=== PATIENT | female | born 1980 | race African-American/Black ===

== ENCOUNTER 2016-09-24 09:37 | Emergency (ER) | payer OTHER ==
[~2016-09-24] VITALS: Ht 162.6 cm; Wt 68.9 kg
[~2016-09-24 09:37] MED LIST: BIOTIN1000 MCG PO; FLEXERIL10 MG PO; MOTRIN800 MG PO
[2016-09-24] MEDS ORDERED: METFORMIN HCL500 M4 PO (09:48)
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
--- NOTE | 2016-09-24 11:55 | CT SCAN REPORT ---
EXAMINATION: CT HEAD WITHOUT CONTRAST CLINICAL INFORMATION: Headache status-post fall. COMPARISON: None. TECHNIQUE: Contiguous axial imaging was performed from the skull base to vertex without intravenous administration of contrast. Additional coronal reformatted images are submitted. DLP: 600.71 mGy-cm. FINDINGS: There is no evidence of acute intracranial hemorrhage or territorial infarction. No abnormal mass effect or midline shift is seen. Tellez to white matter differentiation is well preserved. No extra-axial fluid collections are identified. The ventricles are normal in size. There is no abnormal attenuation within the brain parenchyma. The osseous structures and soft tissues are normal. The mastoid air cells and visualized portions of the paranasal sinuses are well aerated. IMPRESSION: No acute intracranial pathology.
--- NOTE | 2016-09-24 12:35 | RADIOLOGY REPORT ---
EXAMINATION: XR HUMERUS, RIGHT CLINICAL INFORMATION: Status post fall. COMPARISON: None TECHNIQUE: AP and lateral views of the right humerus. FINDINGS: The right humerus is intact. Although not optimally evaluated, right shoulder joint appears maintained. The regional soft tissues are unremarkable. IMPRESSION: The right humerus is intact without evidence of fracture or dislocation.
[2016-09-24 13:01] VITALS: BP 138/72
[2016-09-24] MEDS ORDERED: NAPROSYN500 M1 PO (13:33)
[2016-09-24] MEDS ORDERED: ORPHENADRINE C100 MG PO (13:33)
== END 2016-09-24 13:37 ==
LOC: ERH 09:37
DX: S09.90XA Unspecified injury of head, initial encounter (principal); S43.401A Unspecified sprain of right shoulder joint, initial encounter; W00.0XXA Fall on same level due to ice and snow, initial encounter; Y92.481 Parking lot as the place of occurrence of the external cause
CPT/HCPCS: 73060-RT; 96372; J1885

== ENCOUNTER 2016-12-27 00:01 | Emergency (ER) | payer OTHER ==
[~2016-12-27] VITALS: Ht 167.6 cm; Wt 68.9 kg
[~2016-12-27 00:01] MED LIST changes: +METFORMIN HCL500 M4 PO; +NAPROSYN500 M1 PO; +ORPHENADRINE C100 MG PO
[2016-12-27 00:53] VITALS: BP 124/69
[2016-12-27] MEDS ORDERED: PEPCID20 M1 PO (01:47)
[2016-12-27] MEDS ORDERED: MEDROL4 M2 PO (01:47)
--- NOTE | 2016-12-27 01:47 | ED SKIN/ALLERGY COMPLAINT ---
History of Present Illness General Chief Complaint: General Adult Stated Complaint: "PER PT BODY ACH,ITCHY,HIVES" Source: patient Exam Limitations: no limitations Vital Signs & Intake/Output Vital Signs & Intake/Output Vital Signs Date Time Temp Pulse Resp B/P B/P Pulse O2 O2 Flow FiO2 Mean Ox Delivery Rate 12/27 0150 98 Room Air 12/27 0053 98.8 102 16 124/69 98 Room Air Allergies Coded Allergies: NO KNOWN ALLERGIES (01/03/13) Triage Note: 36YO FEMALE TO TRIAGE W/CO "HIVES, SWOLLEN BODY " STATES RECENT UTI AND FINISHED NITROFURANTOIN ON WED. Triage Nurses Notes Reviewed? yes Onset: Abrupt Duration: day(s): (2) Timing: multiple episodes today Severity: mild, moderate Location: generalized No Modifying Factors: none Associated Symptoms: rash, ITCHING : No Patient currently breastfeeds: No HPI: 36-year-old female who presents to the ER for chief complaint of itching and hives all over body for the past 2 days. Denies any fever or chills. She finished a course of Macrobid last Wednesday but she had no reactions during the course of antibiotic. She denies using any different products. She does suffer from severe allergies but usually has itching and watery eyes but never has had hives before recent travel. Denies any difficulty swallowing or speaking. Past History Travel History Traveled to [place] past 21 day No Medical History Any Pertinent Medical History? see below for history Neurological: NONE EENT: NONE Cardiovascular: NONE Respiratory: NONE Gastrointestinal: NONE Hepatic: NONE Renal: NONE Musculoskeletal: NONE Psychiatric: NONE Endocrine: PREDIABETES Surgical History Surgical History: N Psychosocial History What is your primary language Nepali Tobacco Use: Never used ETOH Use: denies use Family History Hx Contributory? No Review of Systems Review of Systems Constitutional: Denies: chills, fever, malaise, weakness. EENTM: Reports: no symptoms. Respiratory: Denies: cough, short of breath. Cardiovascular: Denies: chest pain, palpitations, peripheral edema. GI: Denies: nausea, vomiting. Genitourinary: Reports: no symptoms. Musculoskeletal: Reports: no symptoms. Skin: Reports: see HPI (itching), rash. Neurological/Psychological: Denies: confusion. Hematologic/Endocrine: Denies: bruising, bleeding, polyuria, polydipsia. Immunologic/Allergic: Denies: splenectomy. All Other Systems: Reviewed and Negative Physical Exam Physical Exam General Appearance: well developed/nourished, alert, awake, mild distress Head: atraumatic, hives under eyes Eyes: Bilateral: PERRL, EOMI. Ears, Nose, Throat: normal pharynx, normal ENT inspection, hearing grossly normal Neck: supple, full range of motion, hives on neck Respiratory: normal breath sounds, chest non-tender, no respiratory distress, NO WHEEZING, NO STRIDOR Cardiovascular: regular rate/rhythm Peripheral Pulses: 2+ radial (R), 2+ radial (L) Gastrointestinal: soft, non-tender Back: normal inspection Extremities: normal inspection, normal range of motion, no edema Neurologic/Psych: awake, alert, oriented x 3, normal mood/affect Skin: intact, normal color, warm/dry, rash Skin Problem Location: face, neck Skin Problem Character: urticarial Lymphatic: no anterior cervical dieter Progress Differential Diagnosis: allergic reaction, anaphylaxis, contact dermatitis, urticaria Plan of Care: Current Medications Sig/Amrik Start time Last Medication Dose Stop Time Status Admin Famotidine 20 MG ONCE ONE 12/27 144 UNVr (Pepcid) 12/27 145 Prednisone 60 MG ONCE ONE 12/27 144 UNVr 12/27 145 Departure Departure Time of Disposition: 145 Disposition: HOME OR SELF CARE Condition: Stable Clinical Impression Primary Impression: Urticaria Referrals: ANDREW DUQUE,RADHA Coffman (PCP/Family) Additional Instructions: Take the medications as prescribed. Benadryl as needed for itching. Follow-up with her doctor in the office. Return as needed. Departure Forms: Customer Survey General Discharge Information
== END 2016-12-27 01:55 ==
LOC: ERH 00:01
DX: L50.9 Urticaria, unspecified (principal)